=== PATIENT | female | born 1985 | race Hispanic/Latino ===

== ENCOUNTER 2018-07-23 11:02 | Outpatient (CLI) | payer OTHER ==
--- NOTE | 2018-07-23 21:19 | RAD ---
CERVICAL SPINE 07/23/18 There is loss of the normal cervical lordosis which could be due to muscle spasm. There is no disc sp ja narrowing or soft tissue swelling. The C1 to dens distance is normal. No fracture was seen. IMPRESSION: Loss of cervical lordosis, otherwise no acute finding. POS: HOME
== END 2018-07-23 11:03 | disposition home or self-care (01) ==
LOC: BURRAD 11:02
PROVIDERS: ATTEND Family Medicine
DX: M54.2 Cervicalgia (principal); M40.50 Lordosis, unspecified, site unspecified
CPT/HCPCS: 72040

== ENCOUNTER 2019-03-19 07:54 | Emergency (ER) | payer SELFPAY ==
[2019-03-19] MEDS ORDERED: Adacel (T-DAP) 0.5 ML SYRINGE ONE (08:02)
[2019-03-19] MEDS ORDERED: Lidocaine 1% PF 5 ML VIAL ONE (08:05)
== END 2019-03-19 08:33 | disposition home or self-care (01) ==
LOC: BURERS 07:54
DX: S61.211A Laceration without foreign body of left index finger without damage to nail, initial encounter (principal); W26.0XXA Contact with knife, initial encounter; Y92.69 Other specified industrial and construction area as the place of occurrence of the external cause
CPT/HCPCS: 12001; 90471; 90715; J2001

== ENCOUNTER 2019-11-19 11:33 | Emergency (ER) | payer SELFPAY | END 2019-11-19 11:54 | disposition home or self-care (01) | LOC: BURERS 11:33 | DX: M25.571 Pain in right ankle and joints of right foot (principal); J45.909 Unspecified asthma, uncomplicated; W18.09XA Striking against other object with subsequent fall, initial encounter | CPT/HCPCS: 99281 ==